=== PATIENT | female | born 2000 | race Caucasian/White ===

== ENCOUNTER 2025-06-03 12:43 | Outpatient (OUT) | payer BC, SELFPAY ==
--- NOTE | 2025-06-03 | US_ITS ---
Patient Name: JOS HEREDIA MR#: [id number] : 2000 Exam Date: 06/03/2025 Ordering Doctor: NON-STAFF PHYSICIAN RADIOLOGY REPORT PROCEDURE: US BREAST RT LIMITED COMPARISON: None. INDICATIONS: RIGHT BREAST LUMP TECHNIQUE: Breast ultrasound was performed, with evaluation focusing only on specific areas of concern. FINDINGS: In the area of lump at the 10 o'clock position of the right breast approximately 6.1 cm from nipple, a lobulated hypoechoic masses noted measuring 3.8 x 2.8 x 2.0 cm. Additional scanning of the axilla demonstrates no suspicious lymph nodes . DIAGNOSTIC CATEGORY 4--SUSPICIOUS FOR MALIGNANCY. RECOMMENDATIONS: ULTRASOUND-GUIDED CORE BIOPSY: RIGHT BREAST PLEASE NOTE: A NORMAL ULTRASOUND EXAMINATION DOES NOT EXCLUDE THE POSSIBILITY OF BREAST CANCER. A CLINICALLY SUSPICIOUS PALPABLE LUMP SHOULD BE BIOPSIED. Dictated by: Chon Lazo DO on 06/03/2025 at 13:08 Approved by: Chon Lazo DO on 06/03/2025 at 13:17
--- OUTSIDE RECORDS SUMMARY | 2025-06-03 12:45 | XMS_ITS | Clinical Summary ---
Author Organization [facility] Address [address], [address] [place] [address] Care Team Providers Care Consulting Application Engineer Name Role Phone Jacinta Toro APRN, CNP Primary Care Prov ider Allergies No known active allergies Medications MedicationSigDispense QuantityRefillsLast FilledStart DateEnd DateStatus FLUoxetine (PROZAC) 10 MG capsule Take 1 capsule by mouth daily 30 capsule 5Active Active Problems ProblemNoted DateDiagnosed WtxtHbgtrrj60/02/2024 Encounters DateTypeDepartmentCare XwlxEgvrspetyvz67/28/2025Results Follow-Up Mukund Rmaos MD [address] [place] [address] [place] [address] Jacinta Toro APRN - CNP 04/17/2025 8:00 AM ESTOffice Visit Mukund Ramos MD [address] [place] [address] [place] [address] Jacinta Toro APRN - CNP Anxiety (Primary Dx); Breast lump on right side at 11 o'clock position; Screening cholesterol level; Other fatigue; Diabetes mellitus screening; Encounter for hepatitis C screening test for low risk patient; Encounter for screening for HIV03/25/2025Telephone Mukund Ramos MD [address] [place] [address] [place] [address] Jacinta Toro APRN - CNP Medication Wbndhm8603/10/2025Telephone Mukund Ramos MD [address] [place] [address] [place] [address] Jacinta Toro, [employer]ER - MANAGER [employer]AL medication issue (Wellbutrin/)from Last 3 Months Immunizations ImmunizationAdministration DatesNext DueCOVID-19, Inactive, MODERNA BLUE border, Primary or Immunocompromised, (age 12y+)11/13/2020,1DTaP vaccine 11/09/2006,03/06/2003,2001,2001,2001Hep B, ENGERIX-B, RECOMBIVAX-HB, (age - 19y), IM, 0.5mL2001,2001Hep B/Hib (Comvax)2001Hib PRP-OMP, PEDVAXHIB, (age 2m-6y, Adlt Risk), IM, 0.5mL 2001,2001Hib nbgjzrh6003/06/2003MMR, PRIORIX, M-M-R II, (age 12m+), SC, 0.5mL11/09/2006,03/06/2003Meningococcal ACWY, MENVEO (MenACWY-CRM), (age 2m- 55y), IM, 0.5mL01/22/2014Poliovirus, IPOL, (age 6w+), SC/IM, 0.5mL11/09/2006, 2001,2001,2001TDaP, ADACEL (age 10y-64y), BOOSTRIX (age 10y+), IM, 0.5mL01/06/2025,01/22/2014Varicella, VARIVAX, (age 12m+), SC, 0.5mL 01/22/2014,03/06/2003 Social History Tobacco UseTypesPacks/DayYears UsedDateSmoking Tobacco: NeverSmokeless Tobacco: Never Tobacco Cessation:Counseling Given: Not Answered Alcohol UseStandard Drinks/WeekCommentsYes0 (1 standard drink = 0.6 oz pure alcohol)Humiliation, Afraid, Rape, and Kick questionnaireAnswerDate Recorded Within the last year, have you been afraid of your partner or ex-partner?No 04/12/2024Within the last year, have you been humiliated or emotionally abused in other ways by your partner or ex-partner?No04/12/2024Within the last year, have you been kicked, hit, slapped, or otherwise physically hurt by your partner or ex-partner?No04/12/2024Within the last year, have you been raped or forced to have any kind of sexual activity by your partner or ex-partner?No04/12/2024 Social Connection and Isolation PanelAnswerDate RecordedIn a typical week, how many times do you talk on the phone with family, friends, or neighbors?More than three times a week04/12/2024How often do you get together with friends or relatives?Three times a week04/12/2024How often do you attend methodist or gnosticist services?Never04/12/2024o you belong to any clubs or organizations such as methodist groups, unions, fraternal or athletic groups, or school groups? Yes04/12/2024How often do you attend meetings of the clubs or organizations you belong to?1 to 4 times per year04/12/2024re you , , , , never , or living with a partner?Never zsizzpb7904/12/2024 AUDIT-CAnswerDate RecordedQ1: How often do you have a drink containing alcohol? 2-4 times a month04/12/2024Q2: How many drinks containing alcohol do you have on a typical day when you are drinking?1 or Q3: How often do you have six or more drinks on one occasion?Never04/12/2024HQ-2AnswerDate RecordedPHQ-9 Total Zmpmc880Exercise Vital SignAnswerDate RecordedOn average, how many days per week do you engage in moderate to strenuous exercise (like a brisk wal k)?3 days04/12/2024On average, how many minutes do you engage in exercise at this level?30 min04/12/2024RAPARE - TransportationAnswerDate RecordedIn the past 12 months, has lack of transportation kept you from medical appointments or from getting medications?No06/26/2024In the past 12 months, has lack of transportation kept you from meetings, work, or from getting things needed for daily living?06/26/2024Housing Stability Vital SignAnswerDate RecordedIn the last 12 months, was there a time when you were not able to pay the mortgage or rent on time?No08/10/2023In the last 12 months, how many places have you lived?1 08/10/2023In the last 12 months, was there a time when you did not have a steady place to sleep or slept in ashelter (including now)?No08/10/2023Housing Stability Vital SignAnswerDate RecordedIn the last 12 months, was there a time when you were not able to pay the mortgage or rent on time?No04/17/2025In the past 12 months, how many times have you moved where you were living? At any time in the past 12 months, were you homeless or living in a nursing home (including now)?04/17/2025Humiliation, Afraid, Rape, and Kick questionnaire AnswerDate RecordedWithin the last year, have you been afraid of your partner or ex-partner?No04/17/2025Within the last year, have you been humiliated or emotionally abused in other ways by your partner or ex-partner?No04/17/2025 Within the last year, have you been kicked, hit, slapped, or otherwise physically hurt by your partner or ex-partner?04/17/2025Within the last year, have you been raped or forced to have any kind of sexual activity by your part ner or ex-partner?No04/17/2025Social Connection and Isolation PanelAnswerDate RecordedIn a typical week, how many times do you talk on the phone with family, friends, or neighbors?More than three times a week04/17/2025How often do you get together with friends or relatives?Twice a week04/17/2025How often do you attend methodist or gnosticist services?Never04/17/2025Do you belong to any clubs or organizations such as methodist groups, unions, fraternal or athletic groups, or school groups?Yes04/17/2025How often do you attend meetings of the clubs or organizations you belong to?1 to 4 times per year04/17/2025re you , , , , never , or living with a partner?Never tszcplm6004/17/2025UDIT-CAnswerDate RecordedQ1: How often do you have a drink containing alcohol?Monthly or less04/17/2025Q2: How many drinks containing alcohol do you have on a typical day when you are drinking?1 or Q3: How often do you have six or more drinks on one occasion?Never04/17/2025Overall Financial Resource Strain (CARDIA)AnswerDate RecordedHow hard is it for you to pay for the very basics like food, housing, medical care, and heating?Not hard at all04/17/2025[facility] [place] [facility] - Occupational Stress QuestionnaireAnswerDate RecordedDo you feel stress - tense, restless, nervous, or anxious, or unable to sleep at night because yourmind is troubled all the time - these days?Only a amxgio1604/17/2025Exercise Vital SignAnswerDate Recorded On average, how many days per week do you engage in moderate to strenuous exercise (like a brisk walk)?3 days04/17/2025On average, how many minutes do you engage in exercise at this level?30 min04/17/2025Hunger Vital SignAnswerDate RecordedWithin the past 12 months, you worried that your food would run out before you got the money to buymore.Never true04/17/2025Within the past 12 months, the food you bought just didn't last and you didn't have money to get more.Never true04/17/2025PRAPARE - TransportationAnswerDate RecordedIn the past 12 months, has lack of transportation kept you from medical appointments or from getting medications?No04/17/2025In the past 12 months, has lack of transportation kept you from meetings, work, or from getting things needed for daily living?No04/17/2025HC UtilitiesAnswerDate RecordedIn the past 12 months has the [employer], [employer], or [employer] threatened to shut off services in your home?No04/17/2025CommentsUnknownSex and Gender InformationValueDate RecordedSex Assigned at BirthNot on fileLegal IocVonlek93/10/2013 2:46 PM EST Gender IdentityNot on fileSexual OrientationNot on file Last Filed Vital Signs Vital SignReadingTime TakenCommentsBlood Sbxkkocl152/8604/17/2025 8:06 AM EST Ydhol042004/17/2025 8:06 AM ESTTemperature--Respiratory Rate--Oxygen Saturation-- Inhaled Oxygen Concentration--Rbceeu75.1 kg (159 lb)04/17/2025 8:06 AM ESTHeight 154.9 cm (5' 1 )04/17/2025 8:06 AM ESTBody Mass Index30.04106/17/2024 8:06 AM EST Plan of Treatment DateTypeDepartmentCare Team (Latest Contact Info)Xkklvvdrefy37/11/2026 8:00 AM ESTOffice Visit Mukund Ramos MD [address] [place] [address] Jacinta Toro, FLASK MA[employer]ER - MANAGER [employer]AL [address] [place] [address] annual wellnessHealth MaintenanceDue DateLast DoneCommentsHPV vaccine (1 - 3- dose series)2016Chlamydia/GC eagzcc9205/15/2017Pap smear2COVID-19 Vaccine ( season)/09/2020, 10/09/2020Flu vaccine (#1) 01/23/2026Postponed from 01/10/2025 (Patient Refused)Depression Sjocha1904/17/2026 04/17/2025, 04/17/2025DTaP/Tdap/Td vaccine (8 - Td or Tdap)5001/06/2025, 01/22/2014, 11/09/2006, Additional history existsHepatitis B vaccineCompleted 2001, 2001, 2001Hib ycsvisuMzelcbjcy49/25/2003, 2001, 2001, Additional history existsPolio tprzbyoEpdrjorbt05/31/2007, 2001, 2001, Additional history existsMeningococcal (ACWY) vaccine Aged Out01/22/2014No longer eligible based on patient's age to complete this topicVaricella uopfhzvHkufmtxml62/13/2014, 03/06/2003HIV screenCompleted 05/07/2025Hepatitis C qxauhmJdhgwwtwz01/26/2025Hepatitis A vaccineAged OutNo longer eligible based on patient's age to complete this topicMeningococcal B vaccineAged OutNo longer eligible based on patient's age to complete this topic Pneumococcal 0-49 years VaccineAged OutNo longer eligible based on patient's age to complete this topic Insurance Care Teams Team MemberRelationshipSpecialtyStart DateEnd Date Jacinta Toro, [employer]ER - MANAGER [employer]AL [address] [place] [address] PCP - GeneralNurse Practitioner, [facility]08/07/23
== END 2025-06-03 12:44 | disposition home or self-care (01) ==
LOC: US 12:43
DX: N63.11 Unspecified lump in the right breast, upper outer quadrant (principal)
CPT/HCPCS: 76642